=== PATIENT | male | born 1985 | race Caucasian/White ===

== ENCOUNTER 2018-06-30 09:33 | Emergency (ER) | payer MEDICARE | END 2018-06-30 10:55 | disposition home or self-care (01) | LOC: EDH 09:33 | DX: K64.8 Other hemorrhoids (principal); Z98.890 Other specified postprocedural states; Z87.891 Personal history of nicotine dependence | CPT/HCPCS: 82270 ==

== ENCOUNTER 2018-12-28 09:04 | Emergency (ER) | payer MEDICARE | END 2018-12-28 09:59 | disposition home or self-care (01) | LOC: EDH 09:04 | DX: Z48.01 Encounter for change or removal of surgical wound dressing (principal) | CPT/HCPCS: 71045 ==